=== PATIENT | female | born 1955 | race Caucasian/White ===

== ENCOUNTER → 2016-06-30 | Outpatient (CLI) | payer BC ==
--- NOTE | 2016-06-30 16:10 | KCIC ---
Exam: Abdomen ultrasound Indication:Reason For Study Reason: CHRONIC HEP C WITHOUT HEPATIC COMA / Spl. Instructions: / History: Technique: Multiple realtime grayscale sonographic images were obtained over the abdomen. Static images were submitted for interpretation. Findings: Visualized portions of the pancreas are unremarkable. The IVC is patent. The aorta is normal in caliber. The liver is mildly enlarged measuring 18.5 cm. There is increased echogenicity of the hepatic parenchyma compatible with diffuse fatty infiltration. No focal lesions are identified. The gallbladder is nondistended. There is no evidence for cholelithiasis. There is no wall thickening, or pericholecystic fluid. The common bile duct is within normal limits measuring 2-3 mm in diameter. The Right kidney is normal in size measuring 11.1 x 5.1 x 4.2 cm. There is no evidence for mass, nephrolithiasis, or hydronephrosis. No ascites is identified. Impression: Diffuse fatty infiltration of the mildly enlarged liver. Electronically signed by: Beto Lara (Jun 30, 2016 16:09:20)
== END | disposition home or self-care (01) ==
LOC: KCIC US 14:42
PROVIDERS: ATTEND Family Medicine
DX: K76.0 Fatty (change of) liver, not elsewhere classified (principal); R16.0 Hepatomegaly, not elsewhere classified
CPT/HCPCS: 76705

== ENCOUNTER → 2018-03-22 | Day surgery (SDC) | payer BC ==
[~2018-03-22] MED LIST: ATOR20TA58 PO; CANA100T PO; CETI10TA16 PO; GABA600T2 PO; HYDROmorphone 2 MG/ML VIAL IV PRN; IV RINGERS,LACTATED 1000ML 1,000 ML IV SCH; LIDOCAINE 1% PF 2 ML VIAL. ID PRN; LIDOCAINE 1% PF 2 ML VIAL. ONE; LIRA0.6P2 SQ; LISI-334 PO; MELO15TA23 PO; MORPHINE SULFATE 2 MG/ML VIAL. IV PRN; OMEP20CA9 PO; ONDANSETRON PF 4 MG/2 ML VIAL. IV PRN; PROCHLORPERAZINE 10 MG/2 ML VIAL. IV PRN; PROPOFOL 40 ML IV ONE; TRAM50TA PO; fentaNYL PF VIAL 100 MCG/2 ML VIAL IV PRN
[2018-03-22 08:52] VITALS: BP 153/78
--- NOTE | 2018-03-22 09:30 | HP ---
ADMIT DATE: 03/22/2018 REFERRING PHYSICIAN: Dr. Blayne Ferreira. REASON FOR CONSULTATION: Anemia. HISTORY OF PRESENT ILLNESS: This is a 62-year-old female with past medical history significant for hyperlipidemia, diabetes, COPD, hypertension, seen with anemia. Hemoglobin has been in the 10 range. There has been no visible bleeding with either melena and/or hematochezia. Weight and appetite are stable. She has not undergone previous endoscopic studies. She has previously been cured of her hepatitis C with sustained viral response. No dysphagia or odynophagia is noted as well and no family history of colon polyps or colon cancer is present. PAST MEDICAL HISTORY: Anemia, diabetes, cured hepatitis C, hypertension. ALLERGIES: None. MEDICATIONS: Include atorvastatin, Invokana, cetirizine, gabapentin, Victoza, lisinopril, meloxicam, omeprazole and tramadol. She is a former smoker, social drinker. PAST SURGICAL HISTORY: Status post appendectomy, hysterectomy and tubal ligation. FAMILY HISTORY: Does have colon polyps with one sibling and blood pressure with her father and siblings. REVIEW OF SYSTEMS: Per records. PHYSICAL EXAMINATION: GENERAL: Reveals a well-nourished, well-developed female, alert, cooperative, in no acute distress. VITAL SIGNS: Temperature is 98.4, pulse is 89, respirations 20. HEENT: Normocephalic and atraumatic head. Pupils and extraocular muscles are not tested. Sclerae anicteric. NECK: Supple. LUNGS: Clear. CARDIOVASCULAR: Reveals an S1, S2 without S3, S4 or appreciable murmur. ABDOMEN: Reveals a soft abdomen, normal bowel sounds without appreciable hepatosplenomegaly. EXTREMITIES: Reveals no cyanosis, clubbing or edema. IMPRESSION AND RECOMMENDATIONS: Anemia, etiology is to be determined. Differential includes gastric or colon malignancy, gastric or colon polyps, arteriovenous malformations, inflammatory bowel disease, celiac disease, cirrhosis with portal hypertension, varices, among others. Therefore, recommend upper endoscopy and colonoscopy to further assess. If this is unrevealing, then capsule endoscopy with small bowel series would be potentially pursued if the patient is unable to maintain her blood count. ADALI NEW MD DR: INGA/lindy JOB#: [id number] / [id number]
== END | disposition home or self-care (01) ==
LOC: SURG 06:54
PROVIDERS: ATTEND Internal Medicine Gastroenterology
DX: K57.30 Diverticulosis of large intestine without perforation or abscess without bleeding (principal); K64.0 First degree hemorrhoids; D50.0 Iron deficiency anemia secondary to blood loss (chronic); I10 Essential (primary) hypertension; E78.5 Hyperlipidemia, unspecified; E11.9 Type 2 diabetes mellitus without complications; J44.9 Chronic obstructive pulmonary disease, unspecified; Z86.19 Personal history of other infectious and parasitic diseases; Z79.84 Long term (current) use of oral hypoglycemic drugs; Z79.899 Other long term (current) drug therapy; Z87.891 Personal history of nicotine dependence; Z72.89 Other problems related to lifestyle; Z90.49 Acquired absence of other specified parts of digestive tract; Z90.710 Acquired absence of both cervix and uterus; Z98.51 Tubal ligation status; Z82.49 Family history of ischemic heart disease and other diseases of the circulatory system
CPT/HCPCS: 43235; 45378; J2704

== ENCOUNTER 2018-10-03 10:55 | Inpatient (IN) | payer BC ==
[~2018-10-03] VITALS: Ht 157.5 cm; Wt 100.2 kg
[~2018-10-03 10:55] MED LIST changes: -GABA600T2 PO; +GABA600T7 PO; -HYDROmorphone 2 MG/ML VIAL IV PRN; -IV RINGERS,LACTATED 1000ML 1,000 ML IV SCH; -LIDOCAINE 1% PF 2 ML VIAL. ID PRN; -LIDOCAINE 1% PF 2 ML VIAL. ONE; -MORPHINE SULFATE 2 MG/ML VIAL. IV PRN; +OMEP20CA10 PO; -OMEP20CA9 PO; -ONDANSETRON PF 4 MG/2 ML VIAL. IV PRN; -PROCHLORPERAZINE 10 MG/2 ML VIAL. IV PRN; -PROPOFOL 40 ML IV ONE; -fentaNYL PF VIAL 100 MCG/2 ML VIAL IV PRN
[2018-10-03 11:59] LABS: BASO # 0.1 x10^3/uL (0.0-0.2); BASO % 1 % (0-3); EOS # 0.2 x10^3/uL (0.0-0.7); EOS % 3 % (0-3); HEMATOCRIT 35.6 % (36.0-47.0); HEMOGLOBIN 11.4 g/dL (12.0-15.5); LYMPH # 1.7 x10^3/uL (1.0-4.8); LYMPH % 21 % (24-48); MEAN CORPUSCULAR HEMOGLOBIN 30 pg (25-35); MEAN CORPUSCULAR HGB CONC 32 g/dL (31-37); MEAN CORPUSCULAR VOLUME 94 fL (79-100); MONO # 0.5 x10^3/uL (0.0-1.1); MONO % 6 % (0-9); NEUT # 5.7 x10^3uL (1.8-7.7); NEUT % 69 % (31-73); PLATELET COUNT 245 x10^3/uL (140-400); RED BLOOD COUNT 3.78 x10^6/uL (3.50-5.40); RED CELL DISTRIBUTION WIDTH 15.4 % (11.5-14.5); WHITE BLOOD COUNT 8.2 x10^3/uL (4.0-11.0)
[2018-10-03] MEDS ORDERED: IV NORMAL SALINE 1000ML BAG 1,000 ML IV ONE ×2 (12:00→15:30)
--- NOTE | 2018-10-03 12:14 | RAD ---
EXAM: CHEST 1 VIEW History: Elevated potassium, abnormal labs COMPARISON: None available. TECHNIQUE: Single portable radiograph of the chest FINDINGS: The cardiac silhouette is unremarkable. The lungs are clear bilaterally. The costophrenic sulci are clear and well demarcated. IMPRESSION: No radiographic evidence of an acute cardiopulmonary process. Electronically signed by: Vj Cunningham MD (10/03/2018 12:11 PM) [facility]
--- NOTE | 2018-10-03 12:57 | EKG ---
[facility] [address] [place] [address] Test Date: 2018-10-03 Test Time: 11:50:16 Pat Name: OSMAN AGUIRRE Department: Room: Gender: F Cardio Tech: : [id number] Requested By: NELY SHELTON Order Number: [id number] Reading MD: Measurements Intervals [place] Rate: 90 P: 47 OK: 144 QRS: 70 QRSD: 78 T: 49 QT: 362 QTc: 447 Interpretive Statements SINUS RHYTHM QRS(T) CONTOUR ABNORMALITY CONSIDER ANTEROSEPTAL MYOCARDIAL DAMAGE POSSIBLY ABNORMAL ECG RI6.01 No previous ECG available for comparison
[2018-10-03 13:10] LABS: CALCIUM 8.5 mg/dL (8.5-10.1); CREATININE 2.5 mg/dL (0.6-1.0); GFR 19.5; POTASSIUM 4.2 mmol/L (3.5-5.1)
[2018-10-03 13:16] LABS: ALBUMIN 3.4 g/dL (3.4-5.0); ALBUMIN/GLOBULIN RATIO 1.2 (1.0-1.7); MAGNESIUM 1.4 mg/dL (1.8-2.4); TOTAL BILIRUBIN 0.2 mg/dL (0.2-1.0); TOTAL PROTEIN 6.3 g/dL (6.4-8.2)
[2018-10-03 13:47] LABS: BILIRUBIN,URINE NEGATIVE (NEG); CLARITY,URINE CLEAR; COLOR,URINE YELLOW; NITRITE,URINE NEGATIVE (NEG); PROTEIN,URINE NEGATIVE (NEG-TRACE); UROBILINOGEN,URINE 0.2 mg/dL (0.2 mg/dL)
[2018-10-03 13:56] LABS: SQUAMOUS EPITHELIAL CELL,UR FEW /LPF
[2018-10-03 13:58] LABS: BACTERIA,URINE FEW /HPF (0-FEW); RBC,URINE 0 /HPF (0-2)
[2018-10-03 14:00] LABS: AMPHETAMINE/METHAMPHETAMINE NEG (NEG); BARBITURATES NEG (NEG); BENZODIAZEPINES NEG (NEG); CANNABINOIDS NEG (NEG); COCAINE NEG (NEG); METHADONE NEG (NEG); OPIATES NEG (NEG); PHENCYCLIDINE NEG (NEG)
--- NOTE | 2018-10-03 14:56 | RAD ---
Examination: Ultrasound kidneys HISTORY: History of acute renal failure COMPARISON: None available FINDINGS: The right kidney measures 12.7 x 5.1 x 5.1 cm. The left kidney measures 11.1 x 4.2 x 6.4 cm. No evidence of hydronephrosis. The urinary bladder is mildly distended. IMPRESSION: Unremarkable exam. Electronically signed by: Vj Cunningham MD (10/03/2018 2:53 PM) [place] [id number]
--- NOTE | 2018-10-03 15:22 | PHYS DOC ---
Past Medical History Past Medical History: COPD, Diabetes-Type II, Hypertension Past Surgical History: Appendectomy, Hysterectomy, Tubal ligation Alcohol Use: None Drug Use: None Adult General Chief Complaint Chief Complaint: ABNORMAL LABS HPI HPI Patient is a 63 year old female with history of diabetes type 2, hypertension, COPD, who presents to the ED today for abnormal labs. Patient states she received a phone call from the PCP in forming her her kidney function was high. Patient states she's been dribbling urine for 1 week. I had talked to patient's PCP earlier this morning, he stated patient's creatinine usually runs around 1.1-1.3, he stated on Sunday they did labs and her creatinine was 5.0 with potassium of 6.0. Patient denies any urgency frequency or dysuria. Denies any chest pain. Denies any shortness of breath. PCP Dr. Sade Leary's Review of Systems Review of Systems Constitutional: Denies fever or chills [] Eyes: Denies change in visual acuity, redness, or eye pain [] HENT: Denies nasal congestion or sore throat [] Respiratory: Denies cough or shortness of breath [] Cardiovascular: No additional information not addressed in HPI [] GI: Denies abdominal pain, nausea, vomiting, bloody stools or diarrhea [] : Reports dribbling urine with elevated creatinine. Denies dysuria or hematuria [] Musculoskeletal: Denies back pain or joint pain [] Integument: Denies rash or skin lesions [] Neurologic: Denies headache, focal weakness or sensory changes [] All other systems were reviewed and found to be within normal limits, except as documented in this note. Current Medications Current Medications Current Medications Medications (Trade) Dose Ordered Sig/Mike Start Time Stop Time Status Last Admin Dose Admin Sodium Chloride 1,000 ml @ 1,000 mls/hr 1X ONCE 10/03/18 12:00 10/03/18 12:59 DC 10/03/18 11:58 1,000 MLS/HR Allergies Allergies Allergies Coded Allergies Type Severity Reaction Last Updated Verified No Known Drug Allergies 03/22/18 No Physical Exam Physical Exam Constitutional: Well developed, well nourished, no acute distress, non-toxic appearance. [] HENT: Normocephalic, atraumatic, bilateral external ears normal, oropharynx moist, no oral exudates, nose normal. [] Eyes: PERRLA, EOMI, conjunctiva normal, no discharge. [] Neck: Normal range of motion, no tenderness, supple, no stridor. [] Cardiovascular:Heart rate regular rhythm, no murmur [] Lungs & Thorax: Bilateral breath sounds clear to auscultation [] Abdomen: Bowel sounds normal, soft, no tenderness, no masses, no pulsatile masses. [] Skin: Warm, dry, no erythema, no rash. [] Back: No tenderness, no CVA tenderness. [] Extremities: No tenderness, no cyanosis, no clubbing, ROM intact, no edema. [] Neurologic: Alert and oriented X 3, normal motor function, normal sensory function, no focal deficits noted. [] Psychologic: Affect normal, judgement normal, mood normal. [] Current Patient Data Vital Signs Vital Signs Date Time Temp Pulse Resp B/P (MAP) Pulse Ox O2 Delivery O2 Flow Rate FiO2 10/03/18 13:31 79 18 152/68 (96) 94 Room Air 10/03/18 11:15 98.2 98.2 Lab Values Laboratory Tests Test 10/03/18 11:41 10/03/18 12:50 10/03/18 13:20 White Blood Count 8.2 x10^3/uL (4.0-11.0) Red Blood Count 3.78 x10^6/uL (3.50-5.40) Hemoglobin 11.4 g/dL (12.0-15.5) L Hematocrit 35.6 % (36.0-47.0) L Mean Corpuscular Volume 94 fL (79-100) Mean Corpuscular Hemoglobin 30 pg (25-35) Mean Corpuscular Hemoglobin Concent 32 g/dL (31-37) Red Cell Distribution Width 15.4 % (11.5-14.5) H Platelet Count 245 x10^3/uL (140-400) Neutrophils (%) (Auto) 69 % (31-73) Lymphocytes (%) (Auto) 21 % (24-48) L Monocytes (%) (Auto) 6 % (0-9) Eosinophils (%) (Auto) 3 % (0-3) Basophils (%) (Auto) 1 % (0-3) Neutrophils # (Auto) 5.7 x10^3uL (1.8-7.7) Lymphocytes # (Auto) 1.7 x10^3/uL (1.0-4.8) Monocytes # (Auto) 0.5 x10^3/uL (0.0-1.1) Eosinophils # (Auto) 0.2 x10^3/uL (0.0-0.7) Basophils # (Auto) 0.1 x10^3/uL (0.0-0.2) Sodium Level 145 mmol/L (136-145) Potassium Level 4.2 mmol/L (3.5-5.1) Chloride Level 105 mmol/L (98-107) Carbon Dioxide Level 29 mmol/L (21-32) Anion Gap 11 (6-14) Blood Urea Nitrogen 52 mg/dL (7-20) H Creatinine 2.5 mg/dL (0.6-1.0) H Estimated GFR (Cockcroft-Gault) 19.5 BUN/Creatinine Ratio 21 (6-20) H Glucose Level 170 mg/dL (70-99) H Calcium Level 8.5 mg/dL (8.5-10.1) Magnesium Level 1.4 mg/dL (1.8-2.4) L Total Bilirubin 0.2 mg/dL (0.2-1.0) Aspartate Amino Transferase (AST) 27 U/L (15-37) Alanine Aminotransferase (ALT) 32 U/L (14-59) Alkaline Phosphatase 68 U/L (46-116) Creatine Kinase 95 U/L (26-192) Creatine Kinase MB (Mass) 2.2 ng/mL (0.0-3.6) Creatine Kinase MB Relative Index 2.3 % (0-4) Troponin I Quantitative < 0.017 ng/mL (0.000-0.055) GN-Vwf-O-Type Natriuretic Peptide 28 pg/mL (0-124) Total Protein 6.3 g/dL (6.4-8.2) L Albumin 3.4 g/dL (3.4-5.0) Albumin/Globulin Ratio 1.2 (1.0-1.7) Lipase 251 U/L (73-393) Thyroid Stimulating Hormone (TSH) 8.104 uIU/mL (0.358-3.74) H Urine Collection Type Unknown Urine Color Yellow Urine Clarity Clear Urine pH 5.0 Urine Specific [place] 1.015 Urine Protein Negative mg/dL (NEG-TRACE) Urine Glucose (UA) >=1000 mg/dL (NEG) Urine Ketones (Stick) Negative mg/dL (NEG) Urine Blood Negative (NEG) Urine Nitrite Negative (NEG) Urine Bilirubin Negative (NEG) Urine Urobilinogen Dipstick 0.2 mg/dL (0.2 mg/dL) Urine Leukocyte Esterase Trace (NEG) Urine RBC 0 /HPF (0-2) Urine WBC 1-4 /HPF (0-4) Urine Squamous Epithelial Cells Few /LPF Urine Bacteria Few /HPF (0-FEW) Urine Opiates Screen Neg (NEG) Urine Methadone Screen Neg (NEG) Urine Barbiturates Neg (NEG) Urine Phencyclidine Screen Neg (NEG) Urine Amphetamine/Methamphetamine Neg (NEG) Urine Benzodiazepines Screen Neg (NEG) Urine Cocaine Screen Neg (NEG) Urine Cannabinoids Screen Neg (NEG) Urine Ethyl Alcohol Neg (NEG) Laboratory Tests 10/03/18 11:41 Laboratory Tests 10/03/18 12:50 EKG EKG 11:[address] Rodriguez sinus rhythm HR 90 no STEMI[] Radiology/Procedures Radiology/Procedures []PROCEDURE: PORTABLE CHEST 1V EXAM: CHEST 1 VIEW History: Elevated potassium, abnormal labs COMPARISON: None available. TECHNIQUE: Single portable radiograph of the chest FINDINGS: The cardiac silhouette is unremarkable. The lungs are clear bilaterally. The costophrenic sulci are clear and well demarcated. IMPRESSION: No radiographic evidence of an acute cardiopulmonary process. Electronically signed by: Vj Cunningham MD (10/03/2018 12:11 PM) [facility] DICTATED and SIGNED BY: VJ CUNNINGHAM MD DATE: 10/03/18 1211 Course & Med Decision Making Course & Med Decision Making Pertinent Labs and Imaging studies reviewed. (See chart for details) This is a 63-year-old female patient was admitted to the ED to be evaluated for abnormal labs. Patient's creatinine was 5.0 done on Sunday at the doctor's off ice. PCP mentioned patient's baseline creatinine is around 1.1-1.3 Patient's EKG is negative, creatinine in the ED 2.5-month-old BUN 52. Glucose 170, anion gap is normal. Patient is able to urinate in the ED. Urine analysis is negative for infection. Patient was started on IV fluids. Consulted with Dr. Garcia who requested renal ultrasound which was ordered. Consulted Dr. Alexander who accepted patient for admission Dragon Disclaimer Dragon Disclaimer This electronic medical record was generated, in whole or in part, using a voice recognition dictation system. Departure Departure Impression: Primary Impression: Acute renal failure Disposition: ADMITTED INPATIENT Condition: STABLE Referrals: SADE FUENTES MD (PCP) Problem Qualifiers Primary Impression: Acute renal failure Acute renal failure type: unspecified Qualified Codes: N17.9 - Acute kidney failure, unspecified NELY SHELTON LINER INSTALLER October 03, 2018 15:22
[2018-10-03] MEDS ORDERED: ACETAMINOPHEN 325 MG TABLET. PO PRN (15:30)
[2018-10-03] MEDS ORDERED: MAGNESIUM SULFATE 1GM 100 ML IV ONE (15:30)
[2018-10-03] MEDS ORDERED: ONDANSETRON PF 4 MG/2 ML VIAL. IV PRN (15:30)
[2018-10-03] MEDS ORDERED: ASPI81TA50 PO (18:37)
[2018-10-03] MEDS ORDERED: VENTOLIN HFA18 GM INH (18:37)
[2018-10-03] MEDS ORDERED: CHOL2000 PO (18:37)
[2018-10-03] MEDS ORDERED: MULT-735 PO (18:37)
[2018-10-03] MEDS ORDERED: GABA600T7 PO (18:37)
[2018-10-03] MEDS ORDERED: METF10007 PO (18:37)
[2018-10-03] MEDS ORDERED: FURO20TA3 PO (18:37)
[2018-10-03 19:00] VITALS: BP 131/73
--- NOTE | 2018-10-03 19:36 | PDOC1 ---
History and Physical Date of Admission: Date of Admission DATE: 10/03/18 TIME: 19:35 Chief Complaint: Problems: (1) Acute renal failure Chief Complain: Abnormal labs with elevated creatinine and elevated potassium History of Present Illness: HPI: Patient is a pleasant middle-aged white female who was called by her primary care doctor today and told to go the ER because her labs are abnormal In particular her creatinine is up to 5 her potassium was 6 Probably her baseline creatinine is 1.3 We checked her labs here in the ER pal hears 2.5 to be a 53 [place] patient consult nephrology Past Medical/Surgical History: PMH/PSH: Past Medical History: COPD, Diabetes-Type II, Hypertension Past Surgical History: Appendectomy, Hysterectomy, Tubal ligation Allergies: Allergies: Coded Allergies: No Known Drug Allergies (Unverified , 03/22/18) Family History: Family History: Coronary disease Social History: Social Hisoty: I think she quit smoking no drink or drugs Current Medications: Current Medications Current Medications Sodium Chloride 1,000 ml @ 1,000 mls/hr 1X ONCE IV Last administered on 10/03/18at 11:58; Start 10/03/18 at 12:00; Stop 10/03/18 at 12:59; Status DC Ondansetron HCl (Zofran) 4 mg PRN Q8HRS PRN IV NAUSEA/VOMITING; Start 10/03/18 at 15:30; Stop 10/04/18 at 15:29 Acetaminophen (Tylenol) 650 mg PRN Q4HRS PRN PO FEVER; Start 10/03/18 at 15:30; Stop 10/04/18 at 15:29 Sodium Chloride 1,000 ml @ 125 mls/hr 1X ONCE IV Last administered on 10/03/18at 16:25; Start 10/03/18 at 15:30; Stop 10/03/18 at 23:29 Magnesium Sulfate/ Dextrose 100 ml @ 100 mls/hr 1X ONCE IV Last administered on 10/03/18at 19:20; Start 10/03/18 at 15:30; Stop 10/03/18 at 16:29; Status DC Aspirin (Ecotrin) 81 mg DAILY PO ; Start 10/04/18 at 09:00 Atorvastatin Calcium (Lipitor) 20 mg HS PO ; Start 10/03/18 at 21:00 Cetirizine HCl (ZyrTEC) 10 mg DAILY PO ; Start 10/04/18 at 09:00 Furosemide (Lasix) 20 mg DAILY PO ; Start 10/04/18 at 09:00 Lisinopril (Prinivil) 20 mg DAILY PO ; Start 10/04/18 at 09:00 Tramadol HCl (Ultram) 150 mg TID PRN PRN PO PAIN; Start 10/03/18 at 18:45 Non-Formulary Medication (Albuterol Sulfate (Ventolin Hfa Inhaler)) 3 puff BID INH ; Start 10/03/18 at 21:00; Status UNV Non-Formulary Medication (Canagliflozin (Invokana)) 100 mg DAILY PO ; Start 10/04/18 at 09:00; Status UNV Vitamin D (Vitamin D3) 2,000 unit DAILY PO ; Start 10/04/18 at 09:00 Gabapentin (Neurontin) 300 mg DAILY PO ; Start 10/03/18 at 09:00 Gabapentin (Neurontin) 300 mg QHS PO ; Start 10/03/18 at 21:00 Non-Formulary Medication (Liraglutide (Victoza 3-Shahid)) 1.8 mg DAILY SQ ; Start 10/04/18 at 09:00; Status UNV Meloxicam (Mobic) 15 mg DAILY PO ; Start 10/04/18 at 09:00 Metformin HCl (Glucophage) 1,000 mg BIDWMEALS PO ; Start 10/04/18 at 08:00; Status UNV Multivitamins (Thera M Plus) 1 tab DAILY PO ; Start 10/04/18 at 09:00 Albuterol Sulfate (Ventolin Neb Soln) 2.5 mg RTBID NEB ; Start 10/03/18 at 20:00 Active Scripts Active Reported Ventolin Hfa Inhaler (Albuterol Sulfate) 18 Gm Hfa.aer.ad 3 Puff INH BID Vitamin D (Cholecalciferol (Vitamin D3)) 2,000 Unit Capsule 1 Cap PO DAILY One-Daily Multi-Vitamin (Multivitamin) 1 Each Tablet 1 Each PO DAILY Aspir-Low (Aspirin) 81 Mg Tablet.dr 1 Tab PO DAILY Furosemide 20 Mg Tablet 1 Tab PO DAILY Metformin Hcl 1,000 Mg Tablet 1,000 Mg PO BIDWMEALS Gabapentin 600 Mg Tablet 600 Mg PO HS Meloxicam 15 Mg Tablet 1 Tab PO DAILY Gabapentin 600 Mg Tablet 300 Mg PO DAILY Victoza 3-Shahid (Liraglutide) 0.6 Mg/0.1 Ml Pen.injctr 1.8 Mg SQ DAILY Cetirizine Hcl 10 Mg Tablet 1 Tab PO DAILY Atorvastatin Calcium 20 Mg Tablet 20 Mg PO HS Invokana (Canagliflozin) 100 Mg Tablet 100 Mg PO DAILY Lisinopril 20 Mg Tablet 1 Tab PO DAILY Tramadol Hcl 50 Mg Tablet 150 Mg PO TID PRN PRN ROS: Review of Systems Review of System REVIEW OF SYSTEMS: GENERAL: Denies weakness SKIN: No bruising, hair changes or rashes. EYES: No blurred, double or loss of vision. NOSE AND THROAT: No history of nosebleeds, hoarseness or sore throat. HEART: No history of palpitations, chest pain or shortness of breath on exertion. LUNGS: Denies cough, hemoptysis, wheezing or shortness of breath. GASTROINTESTINAL: Denies changes in appetite, nausea, vomiting, diarrhea or constipation. GENITOURINARY: No history of frequency, urgency, hesitancy or nocturia. NEUROLOGIC: Denies history of numbness, tingling, tremor or weakness. PSYCHIATRIC: No history of panic, anxiety or depression. ENDOCRINE: No history of heat or cold intolerance, polyuria or polydipsia. EXTREMITIES: Denies muscle weakness, joint pain, pain on walking or stiffness. Physical Exam: Vital Signs: Vital Signs Date Time Temp Pulse Resp B/P (MAP) Pulse Ox O2 Delivery O2 Flow Rate FiO2 10/03/18 16:00 Room Air 10/03/18 15:01 62 19 116/53 (74) 93 10/03/18 11:15 98.2 98.2 Physcial Exam: GEN.: No apparent distress. Alert and oriented. HEENT: Head is normocephalic, atraumatic NECK: Supple, no JVD LUNGS: Clear to auscultation without rhonchi or wheezing HEART: RRR, S1, S2 present. Peripheral pulses intact ABDOMEN: Soft, nontender. Positive bowel sounds no organomegaly EXTREMITIES: Without any cyanosis, clubbing, or edema. Pedal pulses intact NEUROLOGIC: Normal speech, normal tone. A&O x 3 PSYCHIATRIC: Normal affect, normal mood. Stable SKIN: No ulcerations or rashes VASCULAR: Good capillary refill Labs: Labs: Laboratory Tests Test 10/03/18 11:41 10/03/18 12:50 10/03/18 13:20 10/03/18 16:36 White Blood Count 8.2 x10^3/uL (4.0-11.0) Red Blood Count 3.78 x10^6/uL (3.50-5.40) Hemoglobin 11.4 g/dL (12.0-15.5) Hematocrit 35.6 % (36.0-47.0) Mean Corpuscular Volume 94 fL (79-100) Mean Corpuscular Hemoglobin 30 pg (25-35) Mean Corpuscular Hemoglobin Concent 32 g/dL (31-37) Red Cell Distribution Width 15.4 % (11.5-14.5) Platelet Count 245 x10^3/uL (140-400) Neutrophils (%) (Auto) 69 % (31-73) Lymphocytes (%) (Auto) 21 % (24-48) Monocytes (%) (Auto) 6 % (0-9) Eosinophils (%) (Auto) 3 % (0-3) Basophils (%) (Auto) 1 % (0-3) Neutrophils # (Auto) 5.7 x10^3uL (1.8-7.7) Lymphocytes # (Auto) 1.7 x10^3/uL (1.0-4.8) Monocytes # (Auto) 0.5 x10^3/uL (0.0-1.1) Eosinophils # (Auto) 0.2 x10^3/uL (0.0-0.7) Basophils # (Auto) 0.1 x10^3/uL (0.0-0.2) Sodium Level 145 mmol/L (136-145) Potassium Level 4.2 mmol/L (3.5-5.1) Chloride Level 105 mmol/L (98-107) Carbon Dioxide Level 29 mmol/L (21-32) Anion Gap 11 (6-14) Blood Urea Nitrogen 52 mg/dL (7-20) Creatinine 2.5 mg/dL (0.6-1.0) Estimated GFR (Cockcroft-Gault) 19.5 BUN/Creatinine Ratio 21 (6-20) Glucose Level 170 mg/dL (70-99) Calcium Level 8.5 mg/dL (8.5-10.1) Magnesium Level 1.4 mg/dL (1.8-2.4) Total Bilirubin 0.2 mg/dL (0.2-1.0) Aspartate Amino Transf (AST/SGOT) 27 U/L (15-37) Alanine Aminotransferase (ALT/SGPT) 32 U/L (14-59) Alkaline Phosphatase 68 U/L (46-116) Creatine Kinase 95 U/L (26-192) Creatine Kinase MB (Mass) 2.2 ng/mL (0.0-3.6) Creatine Kinase MB Relative Index 2.3 % (0-4) Troponin I Quantitative < 0.017 ng/mL (0.000-0.055) ZZ-Iip-P-Type Natriuretic Peptide 28 pg/mL (0-124) Total Protein 6.3 g/dL (6.4-8.2) Albumin 3.4 g/dL (3.4-5.0) Albumin/Globulin Ratio 1.2 (1.0-1.7) Lipase 251 U/L (73-393) Thyroid Stimulating Hormone (TSH) 8.104 uIU/mL (0.358-3.74) Urine Collection Type Unknown Urine Color Yellow Urine Clarity Clear Urine pH 5.0 Urine Specific [place] 1.015 Urine Protein Negative mg/dL (NEG-TRACE) Urine Glucose (UA) >=1000 mg/dL (NEG) Urine Ketones (Stick) Negative mg/dL (NEG) Urine Blood Negative (NEG) Urine Nitrite Negative (NEG) Urine Bilirubin Negative (NEG) Urine Urobilinogen Dipstick 0.2 mg/dL (0.2 mg/dL) Urine Leukocyte Esterase Trace (NEG) Urine RBC 0 /HPF (0-2) Urine WBC 1-4 /HPF (0-4) Urine Squamous Epithelial Cells Few /LPF Urine Bacteria Few /HPF (0-FEW) Urine Opiates Screen Neg (NEG) Urine Methadone Screen Neg (NEG) Urine Barbiturates Neg (NEG) Urine Phencyclidine Screen Neg (NEG) Urine Amphetamine/Methamphetamine Neg (NEG) Urine Benzodiazepines Screen Neg (NEG) Urine Cocaine Screen Neg (NEG) Urine Cannabinoids Screen Neg (NEG) Urine Ethyl Alcohol Neg (NEG) Glucose (Fingerstick) 79 mg/dL (70-99) Laboratory Tests Test 10/03/18 11:41 10/03/18 12:50 10/03/18 13:20 10/03/18 16:36 White Blood Count 8.2 x10^3/uL (4.0-11.0) Red Blood Count 3.78 x10^6/uL (3.50-5.40) Hemoglobin 11.4 g/dL (12.0-15.5) Hematocrit 35.6 % (36.0-47.0) Mean Corpuscular Volume 94 fL (79-100) Mean Corpuscular Hemoglobin 30 pg (25-35) Mean Corpuscular Hemoglobin Concent 32 g/dL (31-37) Red Cell Distribution Width 15.4 % (11.5-14.5) Platelet Count 245 x10^3/uL (140-400) Neutrophils (%) (Auto) 69 % (31-73) Lymphocytes (%) (Auto) 21 % (24-48) Monocytes (%) (Auto) 6 % (0-9) Eosinophils (%) (Auto) 3 % (0-3) Basophils (%) (Auto) 1 % (0-3) Neutrophils # (Auto) 5.7 x10^3uL (1.8-7.7) Lymphocytes # (Auto) 1.7 x10^3/uL (1.0-4.8) Monocytes # (Auto) 0.5 x10^3/uL (0.0-1.1) Eosinophils # (Auto) 0.2 x10^3/uL (0.0-0.7) Basophils # (Auto) 0.1 x10^3/uL (0.0-0.2) Sodium Level 145 mmol/L (136-145) Potassium Level 4.2 mmol/L (3.5-5.1) Chloride Level 105 mmol/L (98-107) Carbon Dioxide Level 29 mmol/L (21-32) Anion Gap 11 (6-14) Blood Urea Nitrogen 52 mg/dL (7-20) Creatinine 2.5 mg/dL (0.6-1.0) Estimated GFR (Cockcroft-Gault) 19.5 BUN/Creatinine Ratio 21 (6-20) Glucose Level 170 mg/dL (70-99) Calcium Level 8.5 mg/dL (8.5-10.1) Magnesium Level 1.4 mg/dL (1.8-2.4) Total Bilirubin 0.2 mg/dL (0.2-1.0) Aspartate Amino Transf (AST/SGOT) 27 U/L (15-37) Alanine Aminotransferase (ALT/SGPT) 32 U/L (14-59) Alkaline Phosphatase 68 U/L (46-116) Creatine Kinase 95 U/L (26-192) Creatine Kinase MB (Mass) 2.2 ng/mL (0.0-3.6) Creatine Kinase MB Relative Index 2.3 % (0-4) Troponin I Quantitative < 0.017 ng/mL (0.000-0.055) SL-Lzb-P-Type Natriuretic Peptide 28 pg/mL (0-124) Total Protein 6.3 g/dL (6.4-8.2) Albumin 3.4 g/dL (3.4-5.0) Albumin/Globulin Ratio 1.2 (1.0-1.7) Lipase 251 U/L (73-393) Thyroid Stimulating Hormone (TSH) 8.104 uIU/mL (0.358-3.74) Urine Collection Type Unknown Urine Color Yellow Urine Clarity Clear Urine pH 5.0 Urine Specific [place] 1.015 Urine Protein Negative mg/dL (NEG-TRACE) Urine Glucose (UA) >=1000 mg/dL (NEG) Urine Ketones (Stick) Negative mg/dL (NEG) Urine Blood Negative (NEG) Urine Nitrite Negative (NEG) Urine Bilirubin Negative (NEG) Urine Urobilinogen Dipstick 0.2 mg/dL (0.2 mg/dL) Urine Leukocyte Esterase Trace (NEG) Urine RBC 0 /HPF (0-2) Urine WBC 1-4 /HPF (0-4) Urine Squamous Epithelial Cells Few /LPF Urine Bacteria Few /HPF (0-FEW) Urine Opiates Screen Neg (NEG) Urine Methadone Screen Neg (NEG) Urine Barbiturates Neg (NEG) Urine Phencyclidine Screen Neg (NEG) Urine Amphetamine/Methamphetamine Neg (NEG) Urine Benzodiazepines Screen Neg (NEG) Urine Cocaine Screen Neg (NEG) Urine Cannabinoids Screen Neg (NEG) Urine Ethyl Alcohol Neg (NEG) Glucose (Fingerstick) 79 mg/dL (70-99) Images: Images Pending Assessment/Plan Assessment/Plan Acute on chronic renal failure hyperkalemia and azotemia Plan IV fluids Daily labs Consul nephrology Full code DVT prophylaxis Prognosis guarded JOEY VELASQUEZ III DO October 03, 2018 19:36
[2018-10-03] MEDS: ALBUTEROL SULFATE 2.5 MG/3 ML NEBU. NEB SCH (20:17)
[2018-10-03] MEDS: GABAPENTIN 300 MG CAPSULE. PO SCH (20:23)
[2018-10-03] MEDS: traMADol 50 MG TABLET PO PRN (20:40)
[2018-10-03] MEDS ORDERED: ATORVASTATIN CALCIUM 20 MG TABLET PO SCH (21:00)
[2018-10-03] MEDS ORDERED: GABAPENTIN 300 MG CAPSULE. PO SCH (21:00)
[2018-10-03] MEDS ORDERED: ALBUTEROL SULFATE INH SCH (21:00)
[2018-10-03 23:00] VITALS: BP 122/57
[2018-10-04 03:44] VITALS: BP 112/64
[2018-10-04 04:11] LABS: BASO # 0.1 x10^3/uL (0.0-0.2); BASO % 1 % (0-3); EOS # 0.2 x10^3/uL (0.0-0.7); EOS % 3 % (0-3); HEMATOCRIT 33.1 % (36.0-47.0); HEMOGLOBIN 10.7 g/dL (12.0-15.5); LYMPH # 2.8 x10^3/uL (1.0-4.8); LYMPH % 36 % (24-48); MEAN CORPUSCULAR HEMOGLOBIN 30 pg (25-35); MEAN CORPUSCULAR HGB CONC 32 g/dL (31-37); MEAN CORPUSCULAR VOLUME 94 fL (79-100); MONO # 0.5 x10^3/uL (0.0-1.1); MONO % 6 % (0-9); NEUT # 4.2 x10^3uL (1.8-7.7); NEUT % 54 % (31-73); PLATELET COUNT 202 x10^3/uL (140-400); RED BLOOD COUNT 3.53 x10^6/uL (3.50-5.40); RED CELL DISTRIBUTION WIDTH 15.3 % (11.5-14.5); WHITE BLOOD COUNT 7.8 x10^3/uL (4.0-11.0)
[2018-10-04 04:27] LABS: CALCIUM 8.8 mg/dL (8.5-10.1); CREATININE 2.2 mg/dL (0.6-1.0); GFR 22.6; POTASSIUM 4.5 mmol/L (3.5-5.1)
[2018-10-04] MEDS: traMADol 50 MG TABLET PO PRN (06:16)
[2018-10-04 07:00] VITALS: BP 135/66
[2018-10-04] MEDS ORDERED: metFORMIN 500 MG TABLET PO SCH (08:00)
[2018-10-04] MEDS: ALBUTEROL SULFATE 2.5 MG/3 ML NEBU. NEB SCH (08:33)
[2018-10-04] MEDS ORDERED: NON FORMULARY ITEM (Liraglutide (Victoza 3-Pak) 1.8 MG) SQ SCH (09:00)
[2018-10-04] MEDS ORDERED: MELOXICAM 7.5 MG TABLET PO SCH (09:00)
[2018-10-04] MEDS ORDERED: CHOLECALCIFEROL (VITAMIN D3) 1,000 UNIT TABLET PO SCH (09:00)
[2018-10-04] MEDS ORDERED: NON FORMULARY ITEM (Canagliflozin (Invokana) 100 MG) PO SCH (09:00)
[2018-10-04] MEDS ORDERED: CETIRIZINE HCL 10 MG TABLET. PO SCH (09:00)
[2018-10-04] MEDS ORDERED: LISINOPRIL 20 MG TABLET PO SCH (09:00)
[2018-10-04] MEDS ORDERED: ASPIRIN ENTERIC COATED 81 MG TABLET.DR. PO SCH (09:00)
[2018-10-04] MEDS ORDERED: FUROSEMIDE 20 MG TABLET PO SCH (09:00)
[2018-10-04] MEDS ORDERED: MULTIVITAMIN with MINERAL TABLET. PO SCH (09:00)
[2018-10-04] MEDS: GABAPENTIN 300 MG CAPSULE. PO SCH (09:24)
--- NOTE | 2018-10-04 10:17 | NUR ---
Spoke with Dr. Alexander: After patient is seen by nephrology, then it is okay to discharge if nephrology agrees. Waiting on nephrology for possible discharge.
[2018-10-04 11:00] VITALS: BP 114/58
--- NOTE | 2018-10-04 12:21 | PDOC2 ---
CONSULT Date of Consult Date of Consult DATE: 10/04/18 TIME: 12:14 Reason for Consult Reason for Consult: FELICIA Referring Physician Referring Physician: RON Identification/Chief Complaint Chief Complaint FELICIA Source Source: Chart review History of Present Illness Reason for Visit: THIS IS A 63 YR OLD LADY WHO WAS ADMITTED DUE TO ABNORMAL LABS. SHE WAS NOTED TO HAVE A CR OF 5 AND A K OF 6.0 OP AND WAS TOLD TO COME TO THE ER. BASELINE CR OF ABOUT 1.3. NO NSAID USE. NO HEMODYNAMIC INSTABILITY NOTED. NO OTHER NEW MEDS. NO HX OF ISSUES IN THE PAST. CR HERE IS 2.5 YESTERDAY AND 2.2 TODAY. SHE STATES THAT EARLIER IN THE WEEK SHE DID NOT FEEL WELL AND SHE HAD EMESIS ON COUPLE OCCASIONS. SHE ALSO NOTED THAT SUNDAY AND SUNDAY SHE WAS UNABLE TO EMPTY HER BLADDER. SHE WAS ABLE TO ONLY DRIBBLE BUT JUST COULD NOT EMPTY HER BLADDER. LABS WERE THEN TAKEN AT DR FUENTES OFFICE ON SUNDAY WHEN HER CR WAS 5.0. SINCE THEN SHE STATES THAT SHE HAS BEEN VOIDING WELL AND BACK TO BASELINE. SHE DENIED ANY DYSURIA OR HEMATURIA. UA HERE IS NEG EXCEPT FOR GLUCOSURIA Past Medical History Cardiovascular: HTN Renal/: Chronic renal insuff Endocrine: Diabetes Current Problem List Problem List Problems Medical Problems: (1) Acute renal failure Status: Acute Current Medications Current Medications Current Medications Sodium Chloride 1,000 ml @ 1,000 mls/hr 1X ONCE IV Last administered on 10/03/18at 11:58; Start 10/03/18 at 12:00; Stop 10/03/18 at 12:59; Status DC Ondansetron HCl (Zofran) 4 mg PRN Q8HRS PRN IV NAUSEA/VOMITING; Start 10/03/18 at 15:30; Stop 10/04/18 at 15:29 Acetaminophen (Tylenol) 650 mg PRN Q4HRS PRN PO FEVER; Start 10/03/18 at 15:30; Stop 10/04/18 at 15:29 Sodium Chloride 1,000 ml @ 125 mls/hr 1X ONCE IV Last administered on 10/03/18at 16:25; Start 10/03/18 at 15:30; Stop 10/03/18 at 23:29; Status DC Magnesium Sulfate/ Dextrose 100 ml @ 100 mls/hr 1X ONCE IV Last administered on 10/03/18 19:20; Start 10/03/18 at 15:30; Stop 10/03/18 at 16:29; Status DC Aspirin (Ecotrin) 81 mg DAILY PO Last administered on 10/04/18 09:24; Start 10/04/18 at 09:00 Atorvastatin Calcium (Lipitor) 20 mg HS PO Last administered on 10/03/18 20:40; Start 10/03/18 at 21:00 Cetirizine HCl (ZyrTEC) 10 mg DAILY PO Last administered on 10/04/18 09:21; Start 10/04/18 at 09:00 Furosemide (Lasix) 20 mg DAILY PO Last administered on 10/04/18 09:21; Start 10/04/18 at 09:00 Lisinopril (Prinivil) 20 mg DAILY PO Last administered on 10/04/18 09:23; Start 10/04/18 at 09:00 Tramadol HCl (Ultram) 150 mg TID PRN PRN PO PAIN Last administered on 10/04/18 06:16; Start 10/03/18 at 18:45 Non-Formulary Medication (Albuterol Sulfate (Ventolin Hfa Inhaler)) 3 puff BID INH ; Start 10/03/18 at 21:00; Status UNV Non-Formulary Medication (Canagliflozin (Invokana)) 100 mg DAILY PO ; Start 10/04/18 at 09:00; Status UNV Vitamin D (Vitamin D3) 2,000 unit DAILY PO Last administered on 10/04/18 09:22; Start 10/04/18 at 09:00 Gabapentin (Neurontin) 300 mg DAILY PO Last administered on 10/04/18 09:24; Start 10/03/18 at 09:00 Gabapentin (Neurontin) 300 mg QHS PO Last administered on 10/03/18 20:40; Start 10/03/18 at 21:00 Non-Formulary Medication (Liraglutide (Victoza 3-Shahid)) 1.8 mg DAILY SQ ; Start 10/04/18 at 09:00; Status UNV Meloxicam (Mobic) 15 mg DAILY PO Last administered on 10/04/18 09:22; Start 10/04/18 at 09:00 Metformin HCl (Glucophage) 1,000 mg BIDWMEALS PO ; Start 10/04/18 at 08:00; Status UNV Multivitamins (Thera M Plus) 1 tab DAILY PO Last administered on 10/04/18at 09:20; Start 10/04/18 at 09:00 Albuterol Sulfate (Ventolin Neb Soln) 2.5 mg RTBID NEB Last administered on 10/04/18at 08:33; Start 10/03/18 at 20:00 Active Scripts Active Reported Ventolin Hfa Inhaler (Albuterol Sulfate) 18 Gm Hfa.aer.ad 3 Puff INH BID Vitamin D (Cholecalciferol (Vitamin D3)) 2,000 Unit Capsule 1 Cap PO DAILY One-Daily Multi-Vitamin (Multivitamin) 1 Each Tablet 1 Each PO DAILY Aspir-Low (Aspirin) 81 Mg Tablet.dr 1 Tab PO DAILY Gabapentin 600 Mg Tablet 600 Mg PO HS Gabapentin 600 Mg Tablet 300 Mg PO DAILY Victoza 3-Shahid (Liraglutide) 0.6 Mg/0.1 Ml Pen.injctr 1.8 Mg SQ DAILY Cetirizine Hcl 10 Mg Tablet 1 Tab PO DAILY Atorvastatin Calcium 20 Mg Tablet 20 Mg PO HS Invokana (Canagliflozin) 100 Mg Tablet 100 Mg PO DAILY Tramadol Hcl 50 Mg Tablet 150 Mg PO TID PRN PRN Allergies Allergies: Coded Allergies: No Known Drug Allergies (Unverified , 03/22/18) ROS General: YES: Fatigue PSYCHOLOGICAL ROS: YES: Anxiety Eyes: Yes Decreased vision ALLERGY AND IMMUNOLOGY: YES: Seasonal Allergies Genitourinary: YES Retention Musculoskeletal: Yes Muscular Weakness Neurological: Yes Weakness Skin: Yes Dry Skin Physical Exam General: Alert, Oriented X3, Cooperative, No acute distress HEENT: Atraumatic, PERRLA Lungs: Clear to auscultation Heart: Regular rate, Normal S1, Normal S2, No murmurs Abdomen: Normal bowel sounds, Soft Skin: No rashes, No breakdown, No significant lesion Neuro: Normal speech, Sensation intact Psych/Mental Status: Mental status NL, Mood NL MUSCULOSKELETAL: No joint tenderness, No deformity, No swelling Vitals VITALS Vital Signs Date Time Temp Pulse Resp B/P (MAP) Pulse Ox O2 Delivery O2 Flow Rate FiO2 10/04/18 11:00 98.0 77 18 114/58 (76) 92 Room Air 98.0 10/04/18 07:16 97.0 Labs Labs Laboratory Tests Test 10/03/18 11:41 10/03/18 12:50 10/03/18 13:20 10/03/18 16:36 White Blood Count 8.2 x10^3/uL (4.0-11.0) Red Blood Count 3.78 x10^6/uL (3.50-5.40) Hemoglobin 11.4 g/dL (12.0-15.5) Hematocrit 35.6 % (36.0-47.0) Mean Corpuscular Volume 94 fL (79-100) Mean Corpuscular Hemoglobin 30 pg (25-35) Mean Corpuscular Hemoglobin Concent 32 g/dL (31-37) Red Cell Distribution Width 15.4 % (11.5-14.5) Platelet Count 245 x10^3/uL (140-400) Neutrophils (%) (Auto) 69 % (31-73) Lymphocytes (%) (Auto) 21 % (24-48) Monocytes (%) (Auto) 6 % (0-9) Eosinophils (%) (Auto) 3 % (0-3) Basophils (%) (Auto) 1 % (0-3) Neutrophils # (Auto) 5.7 x10^3uL (1.8-7.7) Lymphocytes # (Auto) 1.7 x10^3/uL (1.0-4.8) Monocytes # (Auto) 0.5 x10^3/uL (0.0-1.1) Eosinophils # (Auto) 0.2 x10^3/uL (0.0-0.7) Basophils # (Auto) 0.1 x10^3/uL (0.0-0.2) Sodium Level 145 mmol/L (136-145) Potassium Level 4.2 mmol/L (3.5-5.1) Chloride Level 105 mmol/L (98-107) Carbon Dioxide Level 29 mmol/L (21-32) Anion Gap 11 (6-14) Blood Urea Nitrogen 52 mg/dL (7-20) Creatinine 2.5 mg/dL (0.6-1.0) Estimated GFR (Cockcroft-Gault) 19.5 BUN/Creatinine Ratio 21 (6-20) Glucose Level 170 mg/dL (70-99) Calcium Level 8.5 mg/dL (8.5-10.1) Magnesium Level 1.4 mg/dL (1.8-2.4) Total Bilirubin 0.2 mg/dL (0.2-1.0) Aspartate Amino Transf (AST/SGOT) 27 U/L (15-37) Alanine Aminotransferase (ALT/SGPT) 32 U/L (14-59) Alkaline Phosphatase 68 U/L (46-116) Creatine Kinase 95 U/L (26-192) Creatine Kinase MB (Mass) 2.2 ng/mL (0.0-3.6) Creatine Kinase MB Relative Index 2.3 % (0-4) Troponin I Quantitative < 0.017 ng/mL (0.000-0.055) HV-Alo-G-Type Natriuretic Peptide 28 pg/mL (0-124) Total Protein 6.3 g/dL (6.4-8.2) Albumin 3.4 g/dL (3.4-5.0) Albumin/Globulin Ratio 1.2 (1.0-1.7) Lipase 251 U/L (73-393) Thyroid Stimulating Hormone (TSH) 8.104 uIU/mL (0.358-3.74) Urine Collection Type Unknown Urine Color Yellow Urine Clarity Clear Urine pH 5.0 Urine Specific [place] 1.015 Urine Protein Negative mg/dL (NEG-TRACE) Urine Glucose (UA) >=1000 mg/dL (NEG) Urine Ketones (Stick) Negative mg/dL (NEG) Urine Blood Negative (NEG) Urine Nitrite Negative (NEG) Urine Bilirubin Negative (NEG) Urine Urobilinogen Dipstick 0.2 mg/dL (0.2 mg/dL) Urine Leukocyte Esterase Trace (NEG) Urine RBC 0 /HPF (0-2) Urine WBC 1-4 /HPF (0-4) Urine Squamous Epithelial Cells Few /LPF Urine Bacteria Few /HPF (0-FEW) Urine Opiates Screen Neg (NEG) Urine Methadone Screen Neg (NEG) Urine Barbiturates Neg (NEG) Urine Phencyclidine Screen Neg (NEG) Urine Amphetamine/Methamphetamine Neg (NEG) Urine Benzodiazepines Screen Neg (NEG) Urine Cocaine Screen Neg (NEG) Urine Cannabinoids Screen Neg (NEG) Urine Ethyl Alcohol Neg (NEG) Glucose (Fingerstick) 79 mg/dL (70-99) Test 10/03/18 20:31 10/04/18 03:25 10/04/18 07:17 Glucose (Fingerstick) 115 mg/dL (70-99) 130 mg/dL (70-99) White Blood Count 7.8 x10^3/uL (4.0-11.0) Red Blood Count 3.53 x10^6/uL (3.50-5.40) Hemoglobin 10.7 g/dL (12.0-15.5) Hematocrit 33.1 % (36.0-47.0) Mean Corpuscular Volume 94 fL (79-100) Mean Corpuscular Hemoglobin 30 pg (25-35) Mean Corpuscular Hemoglobin Concent 32 g/dL (31-37) Red Cell Distribution Width 15.3 % (11.5-14.5) Platelet Count 202 x10^3/uL (140-400) Neutrophils (%) (Auto) 54 % (31-73) Lymphocytes (%) (Auto) 36 % (24-48) Monocytes (%) (Auto) 6 % (0-9) Eosinophils (%) (Auto) 3 % (0-3) Basophils (%) (Auto) 1 % (0-3) Neutrophils # (Auto) 4.2 x10^3uL (1.8-7.7) Lymphocytes # (Auto) 2.8 x10^3/uL (1.0-4.8) Monocytes # (Auto) 0.5 x10^3/uL (0.0-1.1) Eosinophils # (Auto) 0.2 x10^3/uL (0.0-0.7) Basophils # (Auto) 0.1 x10^3/uL (0.0-0.2) Sodium Level 144 mmol/L (136-145) Potassium Level 4.5 mmol/L (3.5-5.1) Chloride Level 105 mmol/L (98-107) Carbon Dioxide Level 29 mmol/L (21-32) Anion Gap 10 (6-14) Blood Urea Nitrogen 44 mg/dL (7-20) Creatinine 2.2 mg/dL (0.6-1.0) Estimated GFR (Cockcroft-Gault) 22.6 Glucose Level 111 mg/dL (70-99) Calcium Level 8.8 mg/dL (8.5-10.1) Laboratory Tests Test 10/03/18 12:50 10/03/18 13:20 10/03/18 16:36 10/03/18 20:31 Sodium Level 145 mmol/L (136-145) Potassium Level 4.2 mmol/L (3.5-5.1) Chloride Level 105 mmol/L (98-107) Carbon Dioxide Level 29 mmol/L (21-32) Anion Gap 11 (6-14) Blood Urea Nitrogen 52 mg/dL (7-20) Creatinine 2.5 mg/dL (0.6-1.0) Estimated GFR (Cockcroft-Gault) 19.5 BUN/Creatinine Ratio 21 (6-20) Glucose Level 170 mg/dL (70-99) Calcium Level 8.5 mg/dL (8.5-10.1) Magnesium Level 1.4 mg/dL (1.8-2.4) Total Bilirubin 0.2 mg/dL (0.2-1.0) Aspartate Amino Transf (AST/SGOT) 27 U/L (15-37) Alanine Aminotransferase (ALT/SGPT) 32 U/L (14-59) Alkaline Phosphatase 68 U/L (46-116) Creatine Kinase 95 U/L (26-192) Creatine Kinase MB (Mass) 2.2 ng/mL (0.0-3.6) Creatine Kinase MB Relative Index 2.3 % (0-4) Troponin I Quantitative < 0.017 ng/mL (0.000-0.055) BW-Ymy-Z-Type Natriuretic Peptide 28 pg/mL (0-124) Total Protein 6.3 g/dL (6.4-8.2) Albumin 3.4 g/dL (3.4-5.0) Albumin/Globulin Ratio 1.2 (1.0-1.7) Lipase 251 U/L (73-393) Thyroid Stimulating Hormone (TSH) 8.104 uIU/mL (0.358-3.74) Urine Collection Type Unknown Urine Color Yellow Urine Clarity Clear Urine pH 5.0 Urine Specific [place] 1.015 Urine Protein Negative mg/dL (NEG-TRACE) Urine Glucose (UA) >=1000 mg/dL (NEG) Urine Ketones (Stick) Negative mg/dL (NEG) Urine Blood Negative (NEG) Urine Nitrite Negative (NEG) Urine Bilirubin Negative (NEG) Urine Urobilinogen Dipstick 0.2 mg/dL (0.2 mg/dL) Urine Leukocyte Esterase Trace (NEG) Urine RBC 0 /HPF (0-2) Urine WBC 1-4 /HPF (0-4) Urine Squamous Epithelial Cells Few /LPF Urine Bacteria Few /HPF (0-FEW) Urine Opiates Screen Neg (NEG) Urine Methadone Screen Neg (NEG) Urine Barbiturates Neg (NEG) Urine Phencyclidine Screen Neg (NEG) Urine Amphetamine/Methamphetamine Neg (NEG) Urine Benzodiazepines Screen Neg (NEG) Urine Cocaine Screen Neg (NEG) Urine Cannabinoids Screen Neg (NEG) Urine Ethyl Alcohol Neg (NEG) Glucose (Fingerstick) 79 mg/dL (70-99) 115 mg/dL (70-99) Test 10/04/18 03:25 10/04/18 07:17 White Blood Count 7.8 x10^3/uL (4.0-11.0) Red Blood Count 3.53 x10^6/uL (3.50-5.40) Hemoglobin 10.7 g/dL (12.0-15.5) Hematocrit 33.1 % (36.0-47.0) Mean Corpuscular Volume 94 fL (79-100) Mean Corpuscular Hemoglobin 30 pg (25-35) Mean Corpuscular Hemoglobin Concent 32 g/dL (31-37) Red Cell Distribution Width 15.3 % (11.5-14.5) Platelet Count 202 x10^3/uL (140-400) Neutrophils (%) (Auto) 54 % (31-73) Lymphocytes (%) (Auto) 36 % (24-48) Monocytes (%) (Auto) 6 % (0-9) Eosinophils (%) (Auto) 3 % (0-3) Basophils (%) (Auto) 1 % (0-3) Neutrophils # (Auto) 4.2 x10^3uL (1.8-7.7) Lymphocytes # (Auto) 2.8 x10^3/uL (1.0-4.8) Monocytes # (Auto) 0.5 x10^3/uL (0.0-1.1) Eosinophils # (Auto) 0.2 x10^3/uL (0.0-0.7) Basophils # (Auto) 0.1 x10^3/uL (0.0-0.2) Sodium Level 144 mmol/L (136-145) Potassium Level 4.5 mmol/L (3.5-5.1) Chloride Level 105 mmol/L (98-107) Carbon Dioxide Level 29 mmol/L (21-32) Anion Gap 10 (6-14) Blood Urea Nitrogen 44 mg/dL (7-20) Creatinine 2.2 mg/dL (0.6-1.0) Estimated GFR (Cockcroft-Gault) 22.6 Glucose Level 111 mg/dL (70-99) Calcium Level 8.8 mg/dL (8.5-10.1) Glucose (Fingerstick) 130 mg/dL (70-99) Assessment/Plan Assessment/Plan IMP FELICIA-IMPROVING WITH CR OF 2.2 FROM 5.0 SUSPECT URINARY RETENTION CAUSE OF FELICIA CKD STAGE 2 OR 3 DUE TO DM II DM II PLAN HYDRATION CHECK BLADDER SCAN AND IF UNREMARKABLE THEN CAN D/C IF SHE HAS RECURRENT SYMPTOMS OF RETENTION THEN SHOULD SEE UROLOGY WILL FOLLOW NEEDED DON PAYTON MD October 04, 2018 12:21
--- NOTE | 2018-10-04 12:30 | NUR ---
Spoke with Dr. Garcia who wanted a bladder scan done on patient; results of bladder scan 0 to 41 mL urine (i.e., bladder emptied). Per Dr. Garcia, it is okay for patient to discharge. Follow up with Dr. Ferreira in 1 week. Follow up with Dr. Garcia in 4 to 5, his office.
--- NOTE | 2018-10-04 12:50 | NUR ---
Called for transportation, due to patient's is unavailable to pick her up; [facility] transportation van will arrive at 13:30 to roll picker patient.
--- NOTE | 2018-10-04 13:25 | NUR ---
Ready to transport patient for discharge; however, transportation called at this time to say they are running behind and will call us when transportation is at the lobby. Waiting on transportation.
--- NOTE | 2018-10-04 13:40 | NUR ---
Transportation arrived. Patient discharged from hospital via wheelchair to [facility], in stable condition to home.
--- NOTE | 2018-10-04 19:15 | DS ---
DATE OF DISCHARGE: 10/04/2018 ADMISSION DIAGNOSIS: Acute kidney failure. DISCHARGE DIAGNOSIS: Resolving acute kidney failure, suspect this was secondary to some of her home meds. CONSULTS: Nephrology. PROCEDURES: None. HOSPITAL COURSE: The patient is a pleasant middle-aged male, who presented with kidney failure. She was called by her doctor after the outpatient labs showed a creatinine of 5. When she presented to the ER, her creatinine was 2.5, this morning it is down to 2.2. Clinically, she looks great. It appears she is on few medicines that could be contributing to this. I am going to stop her home lisinopril, her home meloxicam and her Lasix and hold her metformin for a couple of days as well just because of the kidney failure. I did see her and examine her this morning. Her heart tones were normal. Her lungs were clear. Abdomen was soft. Extremities, no edema. We are discharging if Nephrology agrees. I will have her see her doctor in a week and then see if they can readjust these meds. DISPOSITION: Home. ACTIVITY: As tolerated. DIET: Low sodium. MEDICATIONS: We did continue her home albuterol, low dose aspirin, atorvastatin, Invokana, cetirizine, vitamin D, gabapentin, Victoza, vitamins and Ultram. TOTAL TIME: 32 minutes. JOEY VELASQUEZ DO DR: MO/lindy JOB#: [id number] / [id number]
== END 2018-10-04 13:40 | disposition home or self-care (01) | DRG 683 ==
LOC: ER 10:55 → 5 NORTH 14:00
PROVIDERS: ADMIT Internal Medicine; ATTEND Internal Medicine
PROC: 5A09357 Assistance with Respiratory Ventilation, Less than 24 Consecutive Hours, Continuous Positive Airway Pressure (ICD-10-PCS; principal; 2018-10-03)
DX: N17.9 Acute kidney failure, unspecified (principal); Z68.41 Body mass index [BMI] 40.0-44.9, adult; E11.22 Type 2 diabetes mellitus with diabetic chronic kidney disease; E87.5 Hyperkalemia; I12.9 Hypertensive chronic kidney disease with stage 1 through stage 4 chronic kidney disease, or unspecified chronic kidney disease; J44.9 Chronic obstructive pulmonary disease, unspecified; N18.9 Chronic kidney disease, unspecified; Z87.891 Personal history of nicotine dependence; Z90.49 Acquired absence of other specified parts of digestive tract; Z90.710 Acquired absence of both cervix and uterus; Z79.899 Other long term (current) drug therapy; Z98.51 Tubal ligation status; T46.4X5A Adverse effect of angiotensin-converting-enzyme inhibitors, initial encounter; T39.395A Adverse effect of other nonsteroidal anti-inflammatory drugs [NSAID], initial encounter; T50.1X5A Adverse effect of loop [high-ceiling] diuretics, initial encounter; T38.3X5A Adverse effect of insulin and oral hypoglycemic [antidiabetic] drugs, initial encounter; Y92.89 Other specified places as the place of occurrence of the external cause; E66.3 Overweight
CPT/HCPCS: 36415; 71045; 76770; 80048; 80053; 80307; 81001; 82553; 82962; 83690; 83735; 83880; 84443; 84484; 85025; 87086; 93005; 94640; 94660; 96360; J3475; J7030; J7613; 99285-25

== ENCOUNTER → 2019-10-02 | Outpatient (CLI) | payer BC ==
[~2019-10-02] MED LIST changes: +ASPI81TA50 PO; +CHOL2000 PO; +FURO20TA3 PO; +METF10007 PO; +MULT-735 PO; -OMEP20CA10 PO; +OMEP20CA16 PO; +VENTOLIN HFA18 GM INH
--- NOTE | 2019-10-02 15:18 | RAD ---
EXAM: ULTRASOUND THYROID CLINICAL HISTORY: Reason: ACQUIRED HYPOTHYROIDISM / Spl. Instructions: / History: COMPARISON: None available. TECHNIQUE: Ultrasound examination of the thyroid gland was performed FINDINGS: The right thyroid lobe measures 4.5 x 1.8 x 1.6 centimeters. The left thyroid lobe 3.7 x 1.3 x 1.4 cm. The thyroid isthmus measures 0.4 cm in thickness. Thyroid is heterogeneous in echotexture without dominant thyroid nodule or mass. There is no regional cervical lymphadenopathy. IMPRESSION: The thyroid is heterogeneous in echotexture without dominant nodule or mass. Electronically signed by: Jerome Miranda MD (10/02/2019 3:15 PM) [id number]
== END | disposition home or self-care (01) ==
LOC: US 13:10
PROVIDERS: ATTEND Family Medicine
DX: E03.9 Hypothyroidism, unspecified (principal)
CPT/HCPCS: 76536

== ENCOUNTER → 2021-09-28 | Outpatient (CLI) | payer MEDICARE ==
[~2021-09-28] MED LIST changes: -LISI-334 PO; +LISI20TA18 PO
--- NOTE | 2021-09-29 08:03 | KCIC ---
XR RIGHT HIP (WITH OR WITHOUT PELVIS) 2 VIEWS History: Reason: RIGHT SIDE HIP AND SCIATICA PAIN / Spl. Instructions: / History: Technique: AP view of the pelvis and 2 additional views of the right hip. Comparison: None. Findings: No dislocation. No acute fracture. Mild right hip degenerative changes with joint space narrowing and marginal osteophyte formation. Lower lumbar spondylosis. Mild pubic symphysis DJD. Subtle heterogeneous appearance of the femoral heads, left greater than right. Impression: 1. Mild right hip DJD. 2. Subtle heterogeneous appearance of the femoral heads, may represent artifact or avascular necrosi s. MRI can further evaluate if persistent clinical concern. Electronically signed by: Zachary Woodward DO (09/29/2021 8:01 AM) [id number]
== END ==
LOC: KCIC 12:51
PROVIDERS: ATTEND Family Medicine
DX: M16.11 Unilateral primary osteoarthritis, right hip (principal); M47.816 Spondylosis without myelopathy or radiculopathy, lumbar region; M54.31 Sciatica, right side; M25.751 Osteophyte, right hip
CPT/HCPCS: 73502